=== PATIENT | male | born 1950 | race Caucasian/White ===

== ENCOUNTER 2017-09-22 13:20 | Inpatient (IN) ==
[2017-09-22] MEDS ORDERED: *HR* Morphine 2 MG/ML SYRINGE IVP PRN (14:02)
[2017-09-22] MEDS ORDERED: Naloxone 0.4 MG/ML INJ IVP PRN (14:02)
[2017-09-22] MEDS ORDERED: Ondansetron 4 MG/2 ML VIAL IVP PRN (14:02)
--- NOTE | 2017-09-22 14:14 | Urology History & Physical ---
Date of Encounter: 09/22/17 Time of Encounter: 14:12 Assessment and Plan (1) Ureteral stone with hydronephrosis Current Visit: Yes Status: Acute based on his symptoms he has not passed the stone. if unable to pass the stone will need stone extraction and stent placement. the renal function is concerning necessitating prompt intervention. will admit. check stat BMP. stone extraction tomorrow unless labs worse. I'm concerned bc he received toradol yesterday - this was discussed. (2) Acute renal disease Current Visit: Yes Status: Acute stat BMP. Cr was 2.5 yesterday. History of Present Illness Chief complaint: flank pain HPI: Mr. Jensen is a 67 year old male 2 ER visits at [facility]. 5 and 3 mm stones at right UVJ. ER visit yesterday. Cr 2.5. toradol given IV before lab returns. OK urine output but doesnt feel well. no fever. Review of Systems - Constitutional fatigue, no fever(s), no malaise - EENT Nose, mouth and throat: no dizziness - Cardiovascular no chest pain - Respiratory no cough - Gastrointestinal abdominal pain, nausea - Genitourinary flank pain, no hematuria - Musculoskeletal back pain - Integumentary no erythema - Neurological no confusion - Psychiatric no anxiety - Hematologic/Lymphatic no easy bleeding - Allergic/Immunologic no throat swelling Exam - General physical appearance Present: well developed, no distress, no pain - Eyes Present: PERRL - ENT Present: normal nares - Neck Present: no masses - Respiratory Present: normal respiratory effort - Cardiovascular Cardiovascular exam IM: RRR - Abdomen Abdomen: Present: soft. Absent: masses, suprapubic tenderness - Integumentary Present: no rash, no growths, no abnormal pigmentation - Neurologic Present: normal coordination. Absent: disoriented, confused - Musculoskeletal Present: normal gait Urology Results - Labs All other labs normal.
[2017-09-22 14:34] LABS: Basophils # 0.1 K/mcL (0.0-0.2); Basophils % 1.5 %; Eosinophils # 0.1 K/mcL (0.0-0.6); Eosinophils % 1.2 %; Hematocrit 44.5 % (37.5-50.1); Immature Granulocytes % 0.4 % (0-4); Lymphocytes # 2.2 K/mcL (0.6-4.6); Lymphocytes % 27.6 %; Mean Corpuscular HGB Conc 33.7 g/dL (31.6-35.5); Mean Corpuscular Hemoglobin 33.7 pg (28.0-33.3); Mean Platelet Volume 9.3 fL (9.4-12.4); Monocytes # 0.9 K/mcL (0.0-1.3); Monocytes % 11.2 %; Neutrophils # 4.5 K/mcL (1.6-8.9); Platelet Count 302 K/mcL (140-400); Red Blood Count 4.45 M/mcL (4.19-5.50); Red Cell Distribution Width 12.8 % (11.5-14.5); Segmented Neutrophils % 58.1 %
[2017-09-22 14:45] LABS: Calcium 8.9 mg/dL (8.6-10.3); Potassium 4.2 mEq/L (3.5-5.1)
[2017-09-22] MEDS: 0.9 % Sodium Chloride 1,000 ML IVC SCH (16:14)
[2017-09-22] MEDS: *HR* HYDROcodone/Acet 5/325 mg TABLET PO SCH ×3 (18:03→23:51)
[2017-09-23] MEDS: 0.9 % Sodium Chloride 1,000 ML IVC SCH ×3 (02:05→21:00)
[2017-09-23] MEDS: *HR* HYDROcodone/Acet 5/325 mg TABLET PO SCH ×4 (03:52→16:42)
[2017-09-23] MEDS ORDERED: *HR* Belladonna Alkaloids/Opium 30 MG RECTAL SUPPOSITORY RC PRN ×2 (07:19→20:03)
--- NOTE | 2017-09-23 07:23 | Urology Progress Note ---
Date of Encounter: 09/23/17 Time of Encounter: 07:21 - Assessment and Plan (1) Ureteral stone with hydronephrosis Current Visit: Yes Status: Acute Assessment and plan: planned stone extraction today. (2) Acute renal disease Current Visit: Yes Status: Acute Assessment and plan: Cr 2.0. should improve after stone extraction. Progress Note Subjective: still having pain Narrative: significant cramping ABD pain overnight. no stone passage. Objective Initial Vital Signs Temp Pulse Resp BP Pulse Ox 97.9 F 76 14 149/82 97 09/22/17 14:36 09/22/17 14:36 09/22/17 14:36 09/22/17 14:36 09/22/17 14:36 - General physical appearance Present: moderate pain - Abdomen Present: soft - Labs 09/22/17 14:20 09/22/17 14:20 Diabetes panel 09/22/17 Range/Units 14:20 Sodium 136 (136-145) mEq/L Potassium 4.2 (3.5-5.1) mEq/L Chloride 106 (98-107) mEq/L Carbon Dioxide 25 (23-29) mEq/L BUN 20 (8-23) mg/dL Creatinine 2.07 H (0.70-1.30) mg/dL Glucose 155 H (70-105) mg/dL Calcium 8.9 (8.6-10.3) mg/dL Calcium panel 09/22/17 Range/Units 14:20 Calcium 8.9 (8.6-10.3) mg/dL Pituitary panel 09/22/17 Range/Units 14:20 Sodium 136 (136-145) mEq/L Potassium 4.2 (3.5-5.1) mEq/L Chloride 106 (98-107) mEq/L Carbon Dioxide 25 (23-29) mEq/L BUN 20 (8-23) mg/dL Creatinine 2.07 H (0.70-1.30) mg/dL Glucose 155 H (70-105) mg/dL Calcium 8.9 (8.6-10.3) mg/dL Adrenal panel 09/22/17 Range/Units 14:20 Sodium 136 (136-145) mEq/L Potassium 4.2 (3.5-5.1) mEq/L Chloride 106 (98-107) mEq/L Carbon Dioxide 25 (23-29) mEq/L BUN 20 (8-23) mg/dL Creatinine 2.07 H (0.70-1.30) mg/dL Glucose 155 H (70-105) mg/dL Calcium 8.9 (8.6-10.3) mg/dL Consult Discharge Plan - Plan Referrals: Trista Del Rio, LENNY [Primary Care Provider] -
[2017-09-23] MEDS ORDERED: cefTRIAXone 1,000 MG in Water for inj. (sterile) 20 ML 10 ML IVP SCH (09:00)
[2017-09-23] MEDS ORDERED: Levofloxacin 250 MG/50 ML 250 MG/50 ML BAG IVPB PRN ×2 (17:10→20:03)
--- NOTE | 2017-09-23 17:30 | Anesthesia Evaluation PreOp ---
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 Other Medical History: Renal (Ureteral Stone w/hydronephrosis) Anesthesia History: No Prior Anesthetic Complications, Past Anesthesia Alcohol Use: occasionally Drug use: none Medications and Allergies Calcitriol [Calcitriol] 1 appl TP AD 09/22/17 [History] Fexofenadine HCl [Allergy Relief] 180 mg PO DAILY 09/22/17 [History] Halobetasol Propionate [Ultravate] 1 appl TP AD 09/22/17 [History] Montelukast [Singulair] 10 mg PO DAILY 09/22/17 [History] Nebivolol [Bystolic] 5 mg PO DAILY 09/22/17 [History] Tamsulosin [Flomax] 0.4 mg PO DAILY 09/22/17 [History] 3 Allergy/AdvReac Type Severity Reaction Status Date / Time clindamycin Allergy Intermediate Rash Verified 09/22/17 14:28 Amoxicillin Allergy Rash Verified 09/22/17 14:29 - Meds/Allergy Pre-op Review Medications Reviewed: Yes Allergies Reviewed: Yes Beta Blockers on Current Med List: Yes (Nebivilol) Anesthesia Results - Labs 09/22/17 14:20 09/22/17 14:20 Laboratory Results WBC 7.8 K/mcL (4.3-11.1) 09/22/17 14:20 RBC 4.45 M/mcL (4.19-5.50) 09/22/17 14:20 Hgb 15.0 g/dL (12.9-16.9) 09/22/17 14:20 Hct 44.5 % (37.5-50.1) 09/22/17 14:20 MCV 100.0 fL (83.0-100.0) 09/22/17 14:20 MCH 33.7 pg (28.0-33.3) H 09/22/17 14:20 MCHC 33.7 g/dL (31.6-35.5) 09/22/17 14:20 RDW 12.8 % (11.5-14.5) 09/22/17 14:20 Plt Count 302 K/mcL (140-400) 09/22/17 14:20 MPV 9.3 fL (9.4-12.4) L 09/22/17 14:20 Immature Gran % 0.4 % (0-4) 09/22/17 14:20 Seg Neutrophils % 58.1 % 09/22/17 14:20 Lymphocytes % 27.6 % 09/22/17 14:20 Monocytes % 11.2 % 09/22/17 14:20 Eosinophils % 1.2 % 09/22/17 14:20 Basophils % 1.5 % 09/22/17 14:20 Neutrophils # 4.5 K/mcL (1.6-8.9) 09/22/17 14:20 Lymphocytes # 2.2 K/mcL (0.6-4.6) 09/22/17 14:20 Monocytes # 0.9 K/mcL (0.0-1.3) 09/22/17 14:20 Eosinophils # 0.1 K/mcL (0.0-0.6) 09/22/17 14:20 Basophils # 0.1 K/mcL (0.0-0.2) 09/22/17 14:20 Sodium 136 mEq/L (136-145) 09/22/17 14:20 Potassium 4.2 mEq/L (3.5-5.1) 09/22/17 14:20 Chloride 106 mEq/L (98-107) 09/22/17 14:20 Carbon Dioxide 25 mEq/L (23-29) 09/22/17 14:20 BUN 20 mg/dL (8-23) 09/22/17 14:20 Creatinine 2.07 mg/dL (0.70-1.30) H 09/22/17 14:20 Est GFR ( Amer) 39 (> 60) L 09/22/17 14:20 Est GFR (Non-Af Amer) 32 (> 60) L 09/22/17 14:20 BUN/Creatinine Ratio 10 (6-26) 09/22/17 14:20 Glucose 155 mg/dL (70-105) H 09/22/17 14:20 POC Glucose 112 (58-89) H 09/23/17 05:38 Calculated Osmolality 288 (280-300) 09/22/17 14:20 Calcium 8.9 mg/dL (8.6-10.3) 09/22/17 14:20 Anesthesia Exam Vital Signs Temp Pulse Resp BP Pulse Ox 09/23/17 14:50 98.0 F 75 15 161/82 96 09/23/17 11:47 98.1 F 62 14 159/80 97 09/23/17 06:45 97.8 F 74 16 168/93 96 09/23/17 04:40 98.1 F 71 16 144/74 94 09/23/17 00:49 98.3 F 77 17 150/80 95 09/22/17 21:00 98.1 F 80 16 176/80 94 Intake and Output 09/23/17 09/23/17 09/23/17 07:59 15:59 23:59 Intake Total 1173 / 1173 827 / 827 Output Total 675 / 675 600 / 600 Balance 498 / 498 227 / 227 Intake: IV Fluids 1173 / 1173 827 / 827 0.9 % Sodium Chloride 1,000 ML 1173 / 1173 827 / 827 @ 100 mls/hr IVC .Q10H [facility] Rx#: [id number] Oral 0 / 0 Output: Urine 675 / 675 600 / 600 Other: Meal NPO LUNCH Blood Glucose* 112 104 Height: 5'9" Weight: 193# BMI = 29 NPO (# of Hours): Mnoc - HEENT Pupil (Motor): Pupils equal, EOMI Mallampati: II Teeth: Normal Oral Opening: Greater than 3 - FRAMING MILL OPERATOR LOC: Oriented FRAMING MILL OPERATOR Motor: Normal RUE, Normal LUE, Normal RLE, Normal LLE, Normal Face FRAMING MILL OPERATOR Sensory: Normal: RUE, LUE, RLE, LLE, Face - Cardiac Rhythm: Regular Murmur: None - Pulmonary Breath Sounds: bilateral Clear Respiratory Effort: Symmetrical Anesthesia Assess/Plan ASA Score: 2 Modified Davey Scale for Level of Consciousness: Cooperative, oriented, and tranquil Anesthetic Plan: General Monitoring Plan: Standard Monitors Recovery Plan: PACU Anes Supervising Prov Stmt: PT seen/evaluated, R&B discussed, questions answered and consent obtained. Debby Gonzalez MD
[2017-09-23] MEDS ORDERED: Acetaminophen IV 1,000 MG/100 ML INFUS..BTL ONE (18:02)
--- NOTE | 2017-09-23 18:06 | Operative Note ---
Date of procedure: 09/23/17 Pre-op diagnosis: right ureteral stones x2 Post-op diagnosis: same Procedure: right ureteroscopic stone extraction without holmium laser retrograde pyelogram/JJ stent Anesthesia: GETA Surgeon: Tommy Garrison Was there an lead assistant manager present: No Estimated blood loss (cc): 0 Specimen: stone Condition: stable Disposition: PACU Procedure in Detail: PROCEDURE IN DETAIL: Patient was taken back to the operating room, positioned supine on the operating table. Anesthesia was applied without complication. They were moved into dorsal lithotomy. Careful attention was maintained to cushion all pressure points for patient's safety. They were prepped and draped in sterile fashion. Time-out was performed with the proper patient and procedure. A 21-Tristanian rigid cystoscope was inserted into the bladder without difficulty. Systematic examination of bladder revealed no abnormalities. The ureteral orifice was cannulated using a 5-Tristanian ureteral Catheter and a retrograde pyelogram was performed using Isovue. A filling defect was identified which corresponded to the stones. At that point, a zip wire was placed through the 5-Tristanian and confirmed in the renal pelvis with fluoroscopy. Significant debris and hydronephrotic urine returned but no obvious purulence. An 8-10 dilator was then placed over the zip wire to passively dilate the ureteral orifice. A semi-rigid ureteroscope was carefully inserted into the bladder and guided into the ureteral oriface. At that point, no stones were encountered in the distal ureter. I obtained a flexible ureteroscope and was able to pass this up into the renal pelvis. I encountered 3 stones within the ureter all were basketed out using a 1.9 tipless basket. All stone in the ureter was removed. A 4.8 x 26 ureteral stent was placed over the zip wire under fluoroscopy without complication. The bladder was drained along with the stone fragments. They were collected and sent for stone analysis. The string was left attached to the stent and secured to the patient for easy removal in approximately 72 hours
--- NOTE | 2017-09-23 18:09 | Discharge Summary ---
Date of Encounter: 09/23/17 Time of Encounter: 18:07 - Discharge Diagnosis (1) Ureteral stone with hydronephrosis Priority: Primary Status: Resolved (2) Acute renal disease Priority: Secondary Status: Acute - Discharge Medications Prescriptions: HYDROcodone/Acet 5/325 mg [[place] 5-325 mg] 1 tab PO Q4HR PRN 7 Days #15 tablet PRN Reason: Pain Home Medications: Calcitriol 1 appl TP AD 09/22/17 [History] Fexofenadine HCl [Allergy Relief] 180 mg PO DAILY 09/22/17 [History] Halobetasol Propionate [Ultravate] 1 appl TP AD 09/22/17 [History] Montelukast [Singulair] 10 mg PO DAILY 09/22/17 [History] Nebivolol [Bystolic] 5 mg PO DAILY 09/22/17 [History] HYDROcodone/Acet 5/325 mg [[place] 5-325 mg] 1 tab PO Q4HR PRN 7 Days #15 tablet 09/23/17 [Rx] Allergies/Adverse Reactions: 3 Allergy/AdvReac Type Severity Reaction Status Date / Time clindamycin Allergy Intermediate Rash Verified 09/22/17 14:28 Amoxicillin Allergy Rash Verified 09/22/17 14:29 Labs on day of discharge: Labs from last 24 hours 09/23/17 05:38 POC Glucose 112 H Date of admission: 09/22/17 14:02 Primary care physician: Trista Del Rio CNP Discharging clinician: Tommy Garrison Anticipated date of discharge: 09/24/17 - Patient Status Disposition: Home, Self-Care Condition: Good Functional capacity at discharge: independent ambulation Overall status at discharge: patient is progressing back to baseline - Discharge Instructions Follow Up With: Trista Del Rio CNP [Primary Care Provider] - Tommy Garrison MD [Partnered Physician] - (If patient removed his stent at home in 72 hours then follow-up in 2-4 weeks. If patient desires stent removal in the office in follow-up on Friday) Additional Instructions: Stay well-hydrated. Avoid all NSAIDs therapy Expect stent discomfort including increased urgency, frequency, burning on urination, light blood in the urine. Okay to remove stent in 72 hours. Remove the stent by pulling on the string until the entire stent is removed. The patient is not comfortable removing the stent at home he can come to the urology office on Friday. If stent is removed at home and follow-up in 2-4 weeks. After the stent is removed, it is normal to have a increase in flank discomfort for 24-48 hours. Call if severe pain or fever over 101 - Diet and Activity Activity: other Diet: advance to your usual diet - Hospital Course Hospital course: Mr. Jensen is a 67 year old male admitted with acute renal insufficiency and obstructing ureteral stone. Status post successful stone extraction. Creatinine at admission 2.07. This was an improvement over outside labs. Plan to discharge patient when clinically stable. We'll recheck renal function as an outpatient to verify that it normalizes. - Time Spent with Patient Total time spent providing and/or coordinating discharge services: Less than 30 minutes Exam Initial Vital Signs Temp Pulse Resp BP Pulse Ox 97.9 F 76 14 149/82 97 09/22/17 14:36 09/22/17 14:36 09/22/17 14:36 09/22/17 14:36 09/22/17 14:36 - General physical appearance Present: well developed, no distress
[2017-09-23] MEDS ORDERED: *HR* Propofol 200 MG/20 ML VIAL IVP ONE (18:21)
[2017-09-23] MEDS ORDERED: *HR* FentaNYL (PF) 100 MCG/2 ML VIAL ONE (18:21)
[2017-09-23] MEDS ORDERED: *HR* Midazolam HCl 2 MG/2 ML VIAL ONE (18:21)
[2017-09-23] MEDS ORDERED: Lidocaine -MPF 2% 2 ML VIAL ONE (18:22)
[2017-09-23] MEDS ORDERED: EPHEDrine 50 MG/ML VIAL ONE (18:49)
[2017-09-23] MEDS ORDERED: MORPHINE SUL Oral CONC 10 MG/0.5 ML ORAL.SYG SL PRN (18:51)
[2017-09-23] MEDS ORDERED: *HR* Promethazine 25 MG/ML VIAL IVP PRN (18:51)
[2017-09-23] MEDS ORDERED: Dexamethasone 4 MG/ML VIAL ONE (19:05)
[2017-09-23] MEDS ORDERED: Ondansetron 4 MG/2 ML VIAL ONE (19:05)
--- NOTE | 2017-09-23 19:42 | Electrocardiograph Report ---
[place] [id number] Test Date: 2017-09-22 Pat Name: Chino Jensen Department: 115 Room: 3A Gender: M [employer] Developer: [id number] : [id number] Requested By: Tommy Garrison Order Number: [id number] Reading MD: Brittney Wynn Measurements Intervals [place] Rate: 85 P: 47 [place]: 176 QRS: -9 QRSD: 85 T: 33 QT: 366 QTc: 408 Interpretive Statements SINUS RHYTHM NONSPECIFIC T-WAVE ABNORMALITY Electronically Signed On 09-23-2017 19:41:16 EST by Brittney Wynn
--- NOTE | 2017-09-23 19:58 | Anesthesia Evaluation Post Op ---
Date of Encounter: 09/23/17 Time of Encounter: 19:58 - Vital Signs Vital Signs: Vital Signs/O2 Sat, Most Current Temp Pulse Resp BP Pulse Ox 97.0 F L 92 19 127/83 99 09/23/17 19:49 09/23/17 19:49 09/23/17 19:49 09/23/17 19:49 09/23/17 19:49 - Lungs Lungs: Clear Ascult./Percussion - Airway Airway: Non-obstructed - Cardiovascular Regular Rate - Mental Status Mental Status: Alert & Oriented, Answers Appropriately - Pain Pain Scale: 0 - Nausea Vomiting Nausea Vomiting: Not Present - Hydration Hydration: Tolerates oral liquids, Has not voided - Discharge PostOp Status: Transfer Patient to floor
[2017-09-23] MEDS ORDERED: Naloxone 0.4 MG/ML INJ IVP PRN (20:03)
[2017-09-23] MEDS ORDERED: *HR* OxyCODONE Immed Rel 5 MG TABLET PO PRN (20:03)
[2017-09-23] MEDS ORDERED: Ondansetron 4 MG/2 ML VIAL IVP PRN (20:03)
[2017-09-24] MEDS ORDERED: *HR* HYDROcodone/Acet 5/325 mg TABLET PO PRN
[2017-09-24] MEDS: 0.9 % Sodium Chloride 1,000 ML IVC SCH (03:54)
--- NOTE | 2017-09-24 07:13 | Urology Progress Note ---
Date of Encounter: 09/24/17 Time of Encounter: 07:12 - Assessment and Plan (1) Ureteral stone with hydronephrosis Current Visit: Yes Status: Resolved (2) Acute renal disease Current Visit: Yes Status: Acute Assessment and plan: ok for discharge. will check BMP this AM. Progress Note Subjective: feels better, afebrile, hematuria Objective Initial Vital Signs Temp Pulse Resp BP Pulse Ox 97.9 F 76 14 149/82 97 09/22/17 14:36 09/22/17 14:36 09/22/17 14:36 09/22/17 14:36 09/22/17 14:36 - General physical appearance Present: no distress - Labs 09/22/17 14:20 09/22/17 14:20 - VTE Documentation of Mechanical Device: Intermittent pneumatic compression device Consult Discharge Plan - Plan Additional Instructions: Stay well-hydrated. Avoid all NSAIDs therapy Expect stent discomfort including increased urgency, frequency, burning on urination, light blood in the urine. Okay to remove stent in 72 hours. Remove the stent by pulling on the string until the entire stent is removed. The patient is not comfortable removing the stent at home he can come to the urology office on Friday. If stent is removed at home and follow-up in 2-4 weeks. After the stent is removed, it is normal to have a increase in flank discomfort for 24-48 hours. Call if severe pain or fever over 101 Referrals: Trista Del Rio CNP [Primary Care Provider] - Tommy Garrison MD [Partnered Physician] - (If patient removed his stent at home in 72 hours then follow-up in 2-4 weeks. If patient desires stent removal in the office in follow-up on Friday) Prescriptions: HYDROcodone/Acet 5/325 mg [[place] 5-325 mg] 1 tab PO Q4HR PRN 7 Days #15 tablet PRN Reason: Pain
[2017-09-24 07:39] VITALS: BP 126/70
[2017-09-24 09:24] LABS: BUN/Creatinine Ratio 14 (6-26); Blood Urea Nitrogen 17 mg/dL (8-23); Calcium 8.4 mg/dL (8.6-10.3); Carbon Dioxide 22 mEq/L (23-29); Chloride 105 mEq/L (98-107); Glucose 228 mg/dL (70-105); Osmolality,Calculated 287 (280-300); Potassium 4.4 mEq/L (3.5-5.1); Sodium 134 mEq/L (136-145); eGFR For African Americans > 60 (> 60); eGFR For Non-African Americans 58 (> 60)
== END 2017-09-24 11:30 | disposition home or self-care (01) | DRG 669 ==
LOC: 3ANU
PROVIDERS: ADMIT Urology; ATTEND Urology